=== PATIENT | male | born 1990 | race Caucasian/White ===

== ENCOUNTER 2020-04-06 15:33 | Emergency (ER) | payer SELFPAY ==
[~2020-04-06] VITALS: Ht 180.3 cm; Wt 70.8 kg
[2020-04-06 15:38] VITALS: BP 166/94
--- NOTE | 2020-04-06 15:47 | NUR ---
TO XRAY VIA W/C
--- NOTE | 2020-04-06 15:54 | NUR ---
BACK FROM XRAY VIA W/C
[2020-04-06] MEDS ORDERED: HYDROcodone/APAP 5/325 MG 1 TAB TAB PO ONE (16:05)
[2020-04-06] MEDS ORDERED: cefTRIAXone 1,000 MG in LIDOCAINE MPF 1% 2.1 ML IM ONE (16:05)
[2020-04-06] MEDS ORDERED: cefTRIAXone 1,000 MG VIAL ONE (16:07)
[2020-04-06] MEDS ORDERED: LIDOCAINE MPF 1% 5 ML ONE (16:07)
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
--- NOTE | 2020-04-06 17:06 | NUR ---
Patient discharged with v/s stable. Written and verbal after care instructions about crush injury and bone bruise given and explained. Patient alert, oriented and verbalized understanding of instructions. Ambulatory with steady gait. All questions addressed prior to discharge. ID band removed. Patient advised to follow up with PMD. Rx of Asher, Naprosyn, Augmentin given. Patient educated on indication of medication including possible reaction and side effects. Opportunity to ask questions provided and answered.
[2020-04-06 18:34] VITALS: BP 153/95
== END 2020-04-06 17:06 | disposition home or self-care (01) ==
LOC: MED 15:33
DX: S60.031A Contusion of right middle finger without damage to nail, initial encounter (principal); S67.192A Crushing injury of right middle finger, initial encounter; X58.XXXA Exposure to other specified factors, initial encounter; Y93.89 Activity, other specified; Y92.89 Other specified places as the place of occurrence of the external cause; Y99.8 Other external cause status
CPT/HCPCS: 29130; 73130; 96372; 99283; J0696; J2001

== ENCOUNTER 2020-04-18 20:29 | Emergency (ER) | payer OTHER ==
[~2020-04-18] VITALS: Ht 175.3 cm; Wt 68.9 kg
--- NOTE | 2020-04-18 20:30 | NUR ---
pt ambulated to bed 12 with steady gait
[2020-04-18 20:35] VITALS: BP 128/87
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
--- NOTE | 2020-04-18 20:40 | NUR ---
FENG Donato and ERWIN Purcell at bedside evaluating pt.
--- NOTE | 2020-04-18 21:05 | NUR ---
Patient discharged with v/s stable. Written and verbal after care instructions given and explained. Patient alert, oriented and verbalized understanding of instructions. Ambulatory with steady gait. All questions addressed prior to discharge. ID band removed. Patient advised to follow up with PMD. Rx of tramadol and bactrim given. Patient educated on indication of medication including possible reaction and side effects. Opportunity to ask questions provided and answered.
== END 2020-04-18 21:05 | disposition home or self-care (01) ==
LOC: MED 20:29
DX: S67.192A Crushing injury of right middle finger, initial encounter (principal); L03.011 Cellulitis of right finger; X58.XXXA Exposure to other specified factors, initial encounter; Y93.89 Activity, other specified; Y92.89 Other specified places as the place of occurrence of the external cause; Y99.8 Other external cause status
CPT/HCPCS: 99283

== ENCOUNTER 2021-04-06 20:34 | Emergency (ER) | payer MEDICAID, SELFPAY ==
[~2021-04-06] VITALS: Ht 182.9 cm; Wt 78.0 kg
[~2021-04-06 20:34] MED LIST: ACET-2619 PO; ACET-9527 PO; VANC1PDS14 IV
[2021-04-06 20:50] VITALS: BP 122/75
--- NOTE | 2021-04-06 20:50 | NUR ---
to bed ambulatory
[2021-04-06 21:04] VITALS: BP 122/75
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
--- NOTE | 2021-04-06 22:00 | NUR ---
Dr. Olvera examining patient.
[2021-04-06] MEDS ORDERED: KETOROLAC 30 MG/ML VIAL IVP ONE (22:30)
[2021-04-06] MEDS ORDERED: CLINDAMYCIN 300 MG in DEXTROSE 5% 50 ML IV ONE (22:30)
[2021-04-06] MEDS ORDERED: CLINDAMYCIN 600 MG/4 ML VIAL ONE (22:50)
[2021-04-06 23:10] LABS: BASOPHILS % (AUTO) 0.6 % (0.0-2.0); EOSINOPHILS # (AUTO) 0.1 K/uL (0-0.4); EOSINOPHILS % (AUTO) 0.9 % (0.0-4.0); HEMATOCRIT 42.6 % (36-52); HEMOGLOBIN 14.5 g/dL (12.0-18.0); LYMPHOCYTES # (AUTO) 1.3 K/uL (2.0-11.5); LYMPHOCYTES % (AUTO) 17.2 % (20.5-51.1); MEAN CORPUSCULAR HEMOGLOBIN 31 pg (27-31); MEAN CORPUSCULAR HGB CONC 34 g/dL (33-37); MEAN CORPUSCULAR VOLUME 92.2 fL (80-94); MONOCYTES # (AUTO) 1.2 K/uL (0.8-1.0); MONOCYTES % (AUTO) 15.4 % (1.7-9.3); NEUTROPHILS # (AUTO) 5.2 K/uL (1.8-7.7); NEUTROPHILS % (AUTO) 65.9 % (42.2-75.2); PLATELET COUNT (AUTO) 176 K/uL (140-450); RED BLOOD CELL COUNT(AUTO) 4.62 MIL/uL (4.20-6.10); RED CELL DISTRIBUTION WIDTH 13.2 % (11.6-13.7); WHITE BLOOD COUNT (AUTO) 7.8 K/uL (4.8-10.8)
[2021-04-06 23:26] LABS: ALBUMIN 3.6 g/dL (3.4-5.0); ANION GAP 7.4 (8-16); CARBON DIOXIDE 32.4 mmol/L (21-32); CREATININE 1.2 mg/dL (0.6-1.3); POTASSIUM 3.8 mmol/L (3.5-5.1); TOTAL BILIRUBIN 0.6 mg/dL (0.0-1.0)
--- NOTE | 2021-04-07 00:14 | NUR ---
PT RETURN FROM CT
[2021-04-07] MEDS ORDERED: AMOX-1000 PO (01:58)
[2021-04-07] MEDS ORDERED: IBUP-2218 PO (01:58)
--- NOTE | 2021-04-07 02:10 | NUR ---
d/c with VSS. d/c education given. opportunity to ask questions given and answered. copy of CT results and CD given to pt. referreral to ENT given to pt. rx of motrin and augmentin given.
== END 2021-04-07 02:10 | disposition home or self-care (01) ==
LOC: MED 20:34
DX: S02.69XA Fracture of mandible of other specified site, initial encounter for closed fracture (principal); Z79.899 Other long term (current) drug therapy; X58.XXXA Exposure to other specified factors, initial encounter; Y93.89 Activity, other specified; Y92.89 Other specified places as the place of occurrence of the external cause; Y99.8 Other external cause status
CPT/HCPCS: 36415; 70487; 80053; 85025; 96365; 96375; 99285; J1885; J3490; Q9967